=== PATIENT | female | born 1990 | race Caucasian/White ===

== ENCOUNTER 2022-10-27 16:00 | Inpatient (IN) | payer OTHER, SELFPAY ==
[2022-10-27] VITALS (107 sets, daily range): BP systolic 97–187; BP diastolic 56–110; PULSE 50–109; RESP 16–18; TEMP 36.9–37.1; O2SAT 91–100; BMI 39.9
--- NOTE | ~2022-10-27 | XR_ITS ---
XR abdomen/kub 1V DATE: 10/27/2022 20:02 INDICATION: Abnormal surgical count. Possible foreign body TECHNIQUE: Portable supine AP view of the lower abdomen and pelvis, from lower aspect of L3 through p roximal femoral shafts. COMPARISON: None FINDINGS: No radiopaque soft tissue foreign body is identified. There is a prominent amount fecal material in the right colon and moderately prominent amount of feca l material in the rectosigmoid area. IMPRESSION: No radiopaque foreign body Reviewed, dictated and finalized at [facility]. Reviewed, dictated and finalized at location A. RRER IMPRESSION: No radiopaque foreign body
[2022-10-27] MEDS: BETAMETHASONE SOD PHOS/ACETATE 30 MG/5 ML VIAL 12 MG IM (16:52)
[2022-10-27] MEDS: NIFEdipine 10 MG CAPSULE PO (17:26)
[2022-10-27] MEDS: LABETALOL HCL INJ 100 MG/20 ML VIAL 20 MG IV PUSH (17:35)
[2022-10-27 17:40] LABS: Basophils Absolute Auto 0.1 K/mm3 (0.0-0.1); Basophils Percent Auto 0.5 % (0.2-1.2); Eosinophils Absolute Auto 0.1 K/mm3 (0-0.3); Eosinophils Percent Auto 0.6 % (0-4.4); Hematocrit 42.1 % (37.0-47.0); Hemoglobin 14.4 g/dL (12.0-15.0); Immature Granulocyte Absolute 0.05 K/mm3 (0.00-0.031); Immature Granulocyte Percent A 0.3 % (0-0.5); Lymphocytes Absolute Auto 4.08 K/mm3 (0.9-3.2); Lymphocytes Percent Auto 28.1 % (18.3-44.2); Mean Corpuscular HGB Conc 34.2 g/dl (32-36); Mean Corpuscular Hemoglobin 30.8 pg (26-34); Mean Platelet Volume 11.4 fl (7.4-10.4); Monocytes Absolute Auto 1.2 K/mm3 (0.1-0.6); Monocytes Percent Auto 8.1 % (2.6-8.5); Neutrophils Percent Auto 62.4 % (45.5-73.1); Platelet Count Result 268 k/mm3 (150-375); Red Blood Count 4.68 M/mm3 (4.2-5.4); Red Cell Distribution Width 13.4 % (11.5-14.5); White Blood Count 14.5 K/mm3 (4.5-10.0)
[2022-10-27 17:47] LABS: Add Urine Microscopic? YES; Appearance Urine Clear (Clear); Bilirubin Urine Negative (Negative); Blood Urine Trace-Intact (Negative); Color Urine Light Yellow (Yellow); Creatinine Urine 100.6 mg/dL; Glucose Urine UA Negative (Negative); Ketones Urine Negative (Negative); Leukocyte Esterase Ur Trace LEU/UL (NEGATIVE); Nitrate Urine Negative (Negative); Protein Urine 3+ mg/dL (Negative); Specific Grav Ur 1.015 (1.001-1.035); Urobilinogen Urine 0.2 mg/dL (<2.0)
[2022-10-27] MEDS: LABETALOL HCL INJ 100 MG/20 ML VIAL 40 MG IV PUSH (17:47)
[2022-10-27 17:56] LABS: Bacteria Urine Trace /hpf; Mucus Urine Rare /lpf; Squamous Epithelial Cell Urine Few /hpf (Few); WBC Urine 0-3 /hpf (0-3)
[2022-10-27] MEDS: LABETALOL HCL INJ 100 MG/20 ML VIAL 80 MG IV PUSH (18:07)
--- NOTE | 2022-10-27 18:21 | PM.IMHP ---
H&P: HPI History of Present Illness Date/Time: 10/27/22 18:21 Chief Complaint: preeclampsia Narrative: Lauren is a 32yo at 25.1 who presented to the office with BPs 190s/120s. No VARGAS/BV. No history of HTN at all. Prior delivery term CS, had planned repeat CS with tubal. Sent to L [facility], received procardia 10mg oral while unable to get IV access, then IV labetalol 20/40/80mg. BP still 178/104, starting magnesium and hydralazine IV now. Normal plt, 3+ proteinuria, H/H , remainder of labs pending. Review of Systems Review of Systems: All systems reviewed & are unremarkable except as noted in HPI and below PMFSH Social History Social History (System 07/30/22 @ 11:52 by Blossom Bonds) Smoking status: Never smoker Alcohol intake: current Meds Home Medications and Allergies Allergies Allergy/AdvReac Type Severity Reaction Status Date / Time No Known Allergies Allergy Verified 10/27/22 16:32 Vital Signs Vital Signs - 24 hr 10/27/22 16:28 10/27/22 16:31 10/27/22 16:39 Pulse Rate 72 75 Blood Pressure 187/105 H 171/97 H Pulse Oximetry 99 10/27/22 16:44 10/27/22 16:46 10/27/22 16:49 Pulse Rate 79 Blood Pressure 170/106 H Pulse Oximetry 99 99 10/27/22 16:54 10/27/22 16:59 10/27/22 17:01 Pulse Rate 54 L Blood Pressure 175/91 H Pulse Oximetry 100 99 10/27/22 17:04 10/27/22 17:09 10/27/22 17:33 Pulse Rate Blood Pressure Pulse Oximetry 98 98 100 10/27/22 17:35 10/27/22 17:38 10/27/22 17:43 Pulse Rate 50 L Blood Pressure 172/90 H Pulse Oximetry 100 100 10/27/22 17:47 10/27/22 17:48 10/27/22 17:53 Pulse Rate 55 L Blood Pressure 171/87 H Pulse Oximetry 100 99 10/27/22 17:58 10/27/22 18:03 10/27/22 18:07 Pulse Rate 76 Blood Pressure 178/104 H Pulse Oximetry 99 100 10/27/22 18:08 10/27/22 18:13 10/27/22 18:18 Pulse Rate Blood Pressure Pulse Oximetry 100 99 100 10/27/22 18:21 10/27/22 17:35 10/27/22 17:47 Pulse Rate 62 63 Blood Pressure Pulse Oximetry 99 10/27/22 18:07 Pulse Rate 80 Blood Pressure Pulse Oximetry Exam Const: General: no acute distress Resp: Effort & Inspection: normal respiratory effort Auscultation: clear to auscultation bilaterally Cardio: Rate: regular rate Rhythm: regular rhythm GI: GI Palp: Yes Soft to palpation Extrem: General: normal to inspection H&P: Results Labs Labs: Short CBC 10/27/22 Range/Units 16:18 WBC 14.5 H (4.5-10.0) K/mm3 Hgb 14.4 (12.0-15.0) g/dL Hct 42.1 (37.0-47.0) % Plt Count 268 (150-375) k/mm3 Urine 10/27/22 Range/Units 16:18 Urine Color Light yellow (Yellow) Urine Appearance Clear (Clear) Urine pH 7.0 (5.0-9.0) Ur Specific [place] 1.015 (1.001-1.035) Urine Protein 3+ H (Negative) mg/dL Urine Glucose (UA) Negative (Negative) mg/dL Assessment and Plan Assessment and plan (1) Pre-eclampsia, severe, antepartum: Code(s): O14.10 - Severe pre-eclampsia, unspecified trimester Status: Acute Plan s/p PO nifedipine, IV labetalol x3, iv hydralazine magnesium for transfer s/p [place] #1 3+ proteinuria, normal plt and H/H, remainder of labs pending. FHT overall reassuring. did have one deceleration x 1.5 min. Discussed with pt diagnosis and prognosis of severe PreE and likely need for very delivery. Discussed magnesium therapy to prevent seizure. Questions answered. Will transfer to [place] per pt preference, works for [employer]. Transfer arranged, spent 40 minutes discussing POC with pt, RN, battery charger, and arranging transfer of this severely ill mother and her baby.
[2022-10-27] MEDS: hydrALAZINE HCL 20 MG/ML VIAL 5 MG IV PUSH (18:25)
[2022-10-27] MEDS: MAGNESIUM SULF 4 GM/WATER100ML 4 GM/100 ML BAG IVPB (18:26)
--- NOTE | 2022-10-27 18:38 | PM.TDS ---
Transfer Discharge Sum: Prov Provider Date of admission: 10/27/22 16:00 Primary care physician: UNKNOWN,DOCTOR Admitting clinician: Fabiola Cruz MD Attending physician on admission: Fabiola Cruz Attending physician on discharge: Fabiola Cruz Discharging clinician: Fabiola Cruz Anticipated date of transfer: 10/27/22 Receiving physician/facility: Dr. Corona at [facility] DS: Admitting Diagnosis Discharge Date 10/27/22 Admitting Diagnosis severe PreEclampsia DS: Discharge Diagnosis Discharge Diagnosis (1) Pre-eclampsia, severe, antepartum: Code(s): O14.10 - Severe pre-eclampsia, unspecified trimester Status: Acute Plan see H and P transfer to [facility] Transfer Discharge Sum: Med Medications Active and Home Medications: Active Medications Hydralazine HCl (Hydralazine Hcl 20 Mg/Ml Vial) 5 mg IV PUSH ONCE PRN PRN Reason: BP >160/110 Last Admin: 10/27/22 18:25 Dose: 5 mg Hydralazine HCl (Hydralazine Hcl 20 Mg/Ml Vial) 10 mg IV PUSH ONCE PRN PRN Reason: BP >160/110 Magnesium Sulfate (Magnesium Sulf 20gm/[id number]) 500 mls @ 50 mls/hr IV CONT .Q10H DOMINIQUE Labetalol HCl (Labetalol Hcl Inj 100 Mg/20 Ml Vial) 20 mg IV PUSH ONCE PRN PRN Reason: BP >160/110 Last Admin: 10/27/22 17:35 Dose: 20 mg Labetalol HCl (Labetalol Hcl Inj 100 Mg/20 Ml Vial) 40 mg IV PUSH ONCE PRN PRN Reason: BP >160/110 Last Admin: 10/27/22 17:47 Dose: 40 mg Labetalol HCl (Labetalol Hcl Inj 100 Mg/20 Ml Vial) 80 mg IV PUSH ONCE PRN PRN Reason: BP >160/110 Last Admin: 10/27/22 18:07 Dose: 80 mg Transfer Discharge Sum: Hosp Hospital Course Hospital course: Lauren Arriaza is a 32 year old female presented for severe BPs. 3+ proteinuria. Magnesium started, received steroids for lung maturity, and BPs treated with IV labetalol and hydralazine. FHT monitored. Transfer team from [facility] picked up via ambulance. Time Spent with Patient Time attestation: Total time spent providing and/or coordinating transfer services: Total time spent: Greater than 30 minutes Exam Narrative: abdomen gravid, nontender ext 2+ edema RRR CTA B FHT reassuring for GA with one 1.5min decel down 30bpm Const: General: cooperative and no acute distress DS: Data Data Completed and Pending Labs on day of discharge: Labs from last 24 hours 10/27/22 10/27/22 10/27/22 16:18 16:18 16:18 WBC 14.5 H RBC 4.68 Hgb 14.4 Hct 42.1 MCV 90.0 MCH 30.8 MCHC 34.2 RDW 13.4 Plt Count 268 MPV 11.4 H Immature Gran % (Auto) 0.3 Neut % (Auto) 62.4 Lymph % (Auto) 28.1 [place] % (Auto) 8.1 Eos % (Auto) 0.6 Baso % (Auto) 0.5 Lymph # (Auto) 4.08 H [place] # (Auto) 1.2 H Eos # (Auto) 0.1 Baso # (Auto) 0.1 Abs Immat Gran (auto) 0.05 H Absolute Neuts (auto) 9.0 H Absolute Nucleated RBC 0.0 Nucleated RBC % 0.0 Sodium Pending Potassium Pending Chloride Pending Carbon Dioxide Pending Anion Gap Pending BUN Pending Creatinine Pending Estim Creat Clear Calc Pending Estimated GFR Pending Glucose Pending Uric Acid Pending Calcium Pending Total Bilirubin Pending AST Pending ALT Pending Alkaline Phosphatase Pending Total Protein Pending Albumin Pending Urine Color Urine Appearance Urine pH Ur Specific [place] Urine Protein Urine Glucose (UA) Urine Ketones Ur Blood (Man) Urine Nitrate Urine Bilirubin Urine Urobilinogen Ur Leukocyte Esterase Urine RBC Urine WBC Ur Squamous Epith Cells Urine Bacteria Urine Mucus U Random Total Protein Pending Urine Creatinine 100.6 Protein/Creat Ratio 2 Pending 10/27/22 16:18 WBC RBC Hgb Hct MCV MCH MCHC RDW Plt Count MPV Immature Gran % (Auto) Neut % (Auto) Lymph % (Auto) [place] % (Auto) Eos % (Auto) Baso % (Auto) Lymph # (Auto) [place] # (Auto) Eos # (Auto) Baso # (
--- NOTE | 2022-10-27 18:50 | OBADM ---
This patient, Lauren Arriaza, admitted to the OB room OB Post 116 for observation. Patient/family oriented to hospital policies and general routines including ID bracelet, bed and alarms, visiting hours, pain management, procedures, bathroom and other care routines, personal items, smoking policy, room service/diet, and visiting hours. Patient/Family are encouraged to report perceived risks to care and to ask questions if they do not understand what they are told or what they should do.
[2022-10-27] MEDS: hydrALAZINE HCL 20 MG/ML VIAL 10 MG IV PUSH ×2 (18:52→19:00)
--- NOTE | 2022-10-27 18:52 | PC.NURSE ---
1714- Dr. Cruz notified of patient's vital signs and NST. Orders received. 1811- Dr. Cruz in patient's room, reviewed FHR, labs, and vital signs.
[2022-10-27 18:56] LABS: Alanine Aminotransferase 23 U/L (6-35); Albumin Level 3.5 g/dL (3.5-5.1); Alkaline Phosphatase 94 U/L (38-126); Anion Gap 6 mmol/L (8-16); Aspartate Amino Transferase 35 U/L (14-36); Bilirubin,Total 0.2 mg/dL (0.2-1.3); Blood Urea Nitrogen 11 mg/dL (7-17); Calcium 8.6 mg/dL (8.4-10.2); Carbon Dioxide 21 mmol/L (22-30); Chloride 106 mmol/L (98-107); Estimated CRCL calculation 98 ml/min; Estimated Glomerular Filt Rate > 60; Glucose 95 mg/dL (65-110); Potassium 3.9 mmol/L (3.4-5.0); Sodium 133 mmol/L (137-145); Uric Acid 8.2 mg/dL (2.5-7.5)
[2022-10-27] MEDS: MAGNESIUM SULF 20GM/WATER500ML 500 ML 50 MG IV CONT (19:02)
[2022-10-27 19:03] LABS: Total Protein Urine Random > 600 mg/dL
--- NOTE | 2022-10-27 19:44 | WPDANESEPPF ---
Anes - Initial Pre Proc Eval Date/Time: 10/27/22 19:44 Surgeon: Fabiola Cruz MD Pre Op Diagnosis: Elevated Blood Pressure Patient Data Age: 32 Gender: F Height: 1.65 m Weight: 109 kg Last Vital Signs Pulse 95 10/27/22 19:03 BP 138/88 10/27/22 19:03 Pulse Ox 99 10/27/22 19:01 Allergies Allergy/AdvReac Type Severity Reaction Status Date / Time No Known Allergies Allergy Verified 10/27/22 16:32 Laboratory Tests 10/27/22 10/27/22 10/27/22 16:18 16:18 16:18 WBC 14.5 K/mm3 H K/mm3 (4.5-10.0) RBC 4.68 M/mm3 M/mm3 (4.2-5.4) Hgb 14.4 g/dL g/dL (12.0-15.0) Hct 42.1 % % (37.0-47.0) MCV 90.0 fl fl (80-100) MCH 30.8 pg pg (26-34) MCHC 34.2 g/dl g/dl (32-36) RDW 13.4 % % (11.5-14.5) Plt Count 268 k/mm3 k/mm3 (150-375) MPV 11.4 fl H fl (7.4-10.4) Immature Gran % (Auto) 0.3 % % (0-0.5) Neut % (Auto) 62.4 % % (45.5-73.1) Lymph % (Auto) 28.1 % % (18.3-44.2) [place] % (Auto) 8.1 % % (2.6-8.5) Eos % (Auto) 0.6 % % (0-4.4) Baso % (Auto) 0.5 % % (0.2-1.2) Lymph # (Auto) 4.08 K/mm3 H K/mm3 (0.9-3.2) [place] # (Auto) 1.2 K/mm3 H K/mm3 (0.1-0.6) Eos # (Auto) 0.1 K/mm3 K/mm3 (0-0.3) Baso # (Auto) 0.1 K/mm3 K/mm3 (0.0-0.1) Abs Immat Gran (auto) 0.05 K/mm3 H K/mm3 (0.00-0.031) Absolute Neuts (auto) 9.0 K/mm3 H K/mm3 (1.3-6.7) Absolute Nucleated RBC 0.0 K/mm3 K/mm3 (0.0-0.012) Nucleated RBC % 0.0 % % (0.0-0.2) Sodium Potassium Chloride Carbon Dioxide Anion Gap BUN Creatinine Estim Creat Clear Calc Estimated GFR Glucose Uric Acid Calcium Total Bilirubin AST ALT Alkaline Phosphatase Total Protein Albumin Urine Color Light yellow (Yellow) Urine Appearance Clear (Clear) Urine pH 7.0 (5.0-9.0) Ur Specific [place] 1.015 (1.001-1.035) Urine Protein 3+ mg/dL H mg/dL (Negative) Urine Glucose (UA) Negative mg/dL mg/dL (Negative) Urine Ketones Negative mg/dL mg/dL (Negative) Ur Blood (Man) Trace-intact (Negative) Urine Nitrate Negative (Negative) Urine Bilirubin Negative (Negative) Urine Urobilinogen 0.2 mg/dL mg/dL (<2.0) Ur Leukocyte Esterase Trace KRISTIAN/UL H KRISTIAN/UL (NEGATIVE) Urine RBC 3-5 /hpf H /hpf (0-2) Urine WBC 0-3 /hpf /hpf (0-3) Ur Squamous Epith Cells Few /hpf /hpf (Few) Urine Bacteria Trace /hpf /hpf Urine Mucus Rare /lpf /lpf U Random Total Protein > 600 mg/dL mg/dL Urine Creatinine 100.6 mg/dL mg/dL Protein/Creat Ratio 2 > 5.96 mg/mg H mg/mg (0-0.20) 10/27/22 17:58 WBC RBC Hgb Hct MCV MCH MCHC RDW Plt Count MPV Immature Gran % (Auto) Neut % (Auto) Lymph % (Auto) [place] % (Auto) Eos % (Auto) Baso % (Auto) Lymph # (Auto) [place] # (Auto) Eos # (Auto) Baso # (Auto) Abs Immat Gran (auto) Absolute Neuts (auto) Absolute Nucleated RBC Nucleated RBC % Sodium 133 mmol/L L mmol/L (137-145) Potassium 3.9 mmol/L mmol/L (3.4-5.0) Chloride 106 mmol/L mmol/L (98-107) Carbon Dioxide 21 mmol/L L mmol/L (22-30) Anion Gap 6 mmol/L L mmol/L (8-16) BUN 11 mg/dL mg/dL (7-17) Creatinine 0.90 mg/dL mg/dL (0.7-1.0) Estim Creat Clear Calc 98 ml/min ml/min Estimated GFR > 60 (59 - ) Glucose 95 mg/dL mg/
--- NOTE | 2022-10-27 20:35 | PM.OBPRVD ---
OB - Delivery Note Procedure Delivery date: 10/27/22 Procedure: emergent classical section Events: Preeclampsia w severe features and Previous Delivery Intrapartal Events: Non-Reassuring Status Route of delivery: Specimen: Yes (placenta) Quantitative Blood Loss (ml): 620 Anesthesia type: Spinal Disposition: Floor Complications: none Narrative: See H and P update. The patient received general anesthesia due to emergent nature of CS. [place] was placed, betadine was poured for a rapid prep. As soon as anesthesia was induced, a Pfannensteil skin incision was made and carried through to the underlying layer of fascia. The fascia was incised in the midline and then extended laterally bluntly. The muscles were in the midline and the peritoneum was entered bluntly. The peritoneal incision was extended inferiorly and superiorly.. The bladder blade was then inserted. A classical uterine incision was made with a scalpel and extended bluntly. AROM was performed and fluid was noted to be clear. The head was delivered, followed by the remainder of the baby, very atraumatically. Nuchal cord x3 was noted. The cord was clamped and cut and the infant was handed off. Cord blood was obtained and the placenta was then removed manually. The uterus was exteriorized. A moist lap sponge was used to curette the endometrium. The uterine incision was then closed with two layers of 0-Vicryl in a running, locking fashion and a baseball stitch on the serosa. Good hemostasis was noted. The posterior cul de sac was irrigated with normal saline and cleared of all clot and debris. The uterus was returned to the abdomen. Both lateral gutters were then irrigated. The rectus muscles were inspected and found to be hemostatic. The fascia was reapproximated using 0-Vicryl in running fashion. The subcutaneous tissue was irrigated with normal saline and made hemostatic with Bovie electrocautery. The subcutaneous tissue was reapproximated with a layer of running 2-0 plain gut. The skin was then closed with absorbable lynn. Steri strips and a bandage were applied. The uterus was evacuated. The patient tolerated the procedure very well. All counts were correct. She was taken to the recovery room in good condition. Baby Date of : 10/27/22 Time of : 19:15 Weeks of gestation at delivery: 25 Infant gender: Female Weight (pounds): 1 Weight (ounces): 4 presentation: vertex Placenta delivery description: Manual Removal Cord Vessel Description: 3 Vessels, Nuchal Cord (x3) and Clamped/Cut
[2022-10-27] MEDS: MORPHINE SULFATE INJ (*CRX) 10 MG/ML AMP 2 MG IV PUSH ×4 (20:55→22:01)
--- NOTE | 2022-10-27 21:04 | PM.OBPNLAB ---
Pain Control Date/time seen: 10/27/22 21:04 Assessment and Plan Comments: Late entry: Shortly before 1900, as transfer was pending, FHT were difficult for RN to find. Second RN was helping. Before I attended to other duties, I went to room to verify status. With US I found FHT in the 60s. Pt moved to both sides, FHT stayed in 50s-60s for 2-3 minutes so I called a crash CS at 190. In OR at 190, general anesthesia administered, incision 1912, baby 1914. After CS discussed with Lauren's events leading up to delivery. Questions answered. Support given.
--- NOTE | 2022-10-27 22:20 | PC.NURSE ---
Dr Cruz calls for update on BP. Vitals given to MD and orders received to keep patient on unit for 2 more hours before transferring to post . Orders that if patient has severe range pressures to repeat in 20 minutes and if still severe to call Dr. Cruz for orders.
[2022-10-27] MEDS: ONDANSETRON INJ 4 MG/2 ML VIAL IV PUSH (22:31)
--- NOTE | 2022-10-27 23:18 | PC.NURSE ---
1805 This nurse is asked to come to room 116 to attempt a lab draw due to multiple attempt failures. Two attempts by this nurse unsuccessful in the right AC and right hand. 1812 Report received on patient from Anahi GOLD. 1815 FHTs 115 with movement audible through monitors and pt states she feels movement. 1820 Shannon RN at bedside with successful lab draw from right hand. [id number] This RN attempts to obtain FHTs and continues to adjust monitors. Pt states she feels movement 185 Jose RN at bedside with Dr. Cruz to attempt and find FHTs 190 Dr. Cruz requests US due to inability to obtain FHTs with monitors. FHTs via US in the 60s. Position change attempted. 190 Dr. Cruz calls for emergent RCS due to nonreassuring FHTs 190 MgSO4 turned off and patient is transferred out of room 116 via labor bed to OB OR1
--- NOTE | 2022-10-27 23:29 | PC.NURSE ---
2013 Patient arrives in room 120 for recover via stretcher. 2020 MgSO4 restarted at this time. 2099 Dr Mclain at bedside to talk with patient and SO 2109 Dr Cruz at bedside to talk with patient
[2022-10-28] VITALS (15 sets, daily range): BP systolic 136–154; BP diastolic 83–93; PULSE 71–102; RESP 16–20; TEMP 36.6–37.5; O2SAT 95–99
--- NOTE | 2022-10-28 00:57 | PC.NURSE ---
Addendum entered by Tanja Borrego RN 10/28/22 01:12: Room 279 not 287 Original Note: 0020 Report given to Jeanette GOLD on post unit. 0035 Patient transferred to room 287 via stretcher at this time without complication. Pericare and linen change at this time. Jeanette GOLD continuing care of patient
[2022-10-28] MEDS: ceFAZolin 2 GM/D5W 50 ML 2 GM/50 ML BAG IVPB ×3 (03:57→20:22)
[2022-10-28] MEDS: MAGNESIUM SULF 20GM/WATER500ML 500 ML 50 MG IV CONT ×2 (06:14→16:30)
[2022-10-28 08:13] LABS: Basophils Absolute Auto 0.1 K/mm3 (0.0-0.1); Basophils Percent Auto 0.2 % (0.2-1.2); Hematocrit 40.5 % (37.0-47.0); Hemoglobin 13.4 g/dL (12.0-15.0); Immature Granulocyte Absolute 0.17 K/mm3 (0.00-0.031); Immature Granulocyte Percent A 0.6 % (0-0.5); Lymphocytes Absolute Auto 2.06 K/mm3 (0.9-3.2); Lymphocytes Percent Auto 7.3 % (18.3-44.2); Mean Corpuscular HGB Conc 33.1 g/dl (32-36); Mean Corpuscular Hemoglobin 30.3 pg (26-34); Mean Corpuscular Volume 91.6 fl (80-100); Monocytes Absolute Auto 0.6 K/mm3 (0.1-0.6); Neutrophils Absolute Auto 25.5 K/mm3 (1.3-6.7); Neutrophils Percent Auto 89.9 % (45.5-73.1); Platelet Count Result 309 k/mm3 (150-375); Red Blood Count 4.42 M/mm3 (4.2-5.4); Red Cell Distribution Width 13.4 % (11.5-14.5); White Blood Count 28.3 K/mm3 (4.5-10.0)
[2022-10-28] MEDS: DOCUSATE SODIUM 100 MG CAPSULE PO ×2 (08:30→16:30)
[2022-10-28] MEDS: MULTIVIT/MIN/PREN/FOL AC/IRON TABLET 1 TAB PO (08:30)
[2022-10-28] MEDS: KETOROLAC 30 MG/ML VIAL (*BKC) IV PUSH (08:30)
--- NOTE | 2022-10-28 08:32 | PM.OBPNVD ---
OB - PN: Subj Subjective Date/time seen: 10/28/22 08:32 Patient comments: no complaints baby status: NICU [place] feeding status: pumping and storing Narrative: POD 1 from primary CS. Doing well. Normal lochia. Baby doing well at [facility]. BPs 140s-150s/90s. Mag on. OB - PN: Obj Data Labs 10/27/22 16:18 10/27/22 17:58 Labs: Laboratory Results - last 24 hr 10/27/22 10/27/22 10/27/22 16:18 16:18 16:18 WBC 14.5 H RBC 4.68 Hgb 14.4 Hct 42.1 MCV 90.0 MCH 30.8 MCHC 34.2 RDW 13.4 Plt Count 268 MPV 11.4 H Immature Gran % (Auto) 0.3 Neut % (Auto) 62.4 Lymph % (Auto) 28.1 [place] % (Auto) 8.1 Eos % (Auto) 0.6 Baso % (Auto) 0.5 Lymph # (Auto) 4.08 H [place] # (Auto) 1.2 H Eos # (Auto) 0.1 Baso # (Auto) 0.1 Abs Immat Gran (auto) 0.05 H Absolute Neuts (auto) 9.0 H Absolute Nucleated RBC 0.0 Nucleated RBC % 0.0 Sodium Potassium Chloride Carbon Dioxide Anion Gap BUN Creatinine Estim Creat Clear Calc Estimated GFR Glucose Uric Acid Calcium Total Bilirubin AST ALT Alkaline Phosphatase Total Protein Albumin Urine Color Light yellow Urine Appearance Clear Urine pH 7.0 Ur Specific [place] 1.015 Urine Protein 3+ H Urine Glucose (UA) Negative Urine Ketones Negative Ur Blood (Man) Trace-intact Urine Nitrate Negative Urine Bilirubin Negative Urine Urobilinogen 0.2 Ur Leukocyte Esterase Trace H Urine RBC 3-5 H Urine WBC 0-3 Ur Squamous Epith Cells Few Urine Bacteria Trace Urine Mucus Rare U Random Total Protein > 600 Urine Creatinine 100.6 Protein/Creat Ratio 2 > 5.96 H 10/27/22 17:58 WBC RBC Hgb Hct MCV MCH MCHC RDW Plt Count MPV Immature Gran % (Auto) Neut % (Auto) Lymph % (Auto) [place] % (Auto) Eos % (Auto) Baso % (Auto) Lymph # (Auto) [place] # (Auto) Eos # (Auto) Baso # (Auto) Abs Immat Gran (auto) Absolute Neuts (auto) Absolute Nucleated RBC Nucleated RBC % Sodium 133 L Potassium 3.9 Chloride 106 Carbon Dioxide 21 L Anion Gap 6 L BUN 11 Creatinine 0.90 Estim Creat Clear Calc 98 Estimated GFR > 60 Glucose 95 Uric Acid 8.2 H Calcium 8.6 Total Bilirubin 0.2 AST 35 ALT 23 Alkaline Phosphatase 94 Total Protein 6.0 L Albumin 3.5 Urine Color Urine Appearance Urine pH Ur Specific [place] Urine Protein Urine Glucose (UA) Urine Ketones Ur Blood (Man) Urine Nitrate Urine Bilirubin Urine Urobilinogen Ur Leukocyte Esterase Urine RBC Urine WBC Ur Squamous Epith Cells Urine Bacteria Urine Mucus U Random Total Protein Urine Creatinine Protein/Creat Ratio 2 Imaging Radiologist's impression: Impressions Abdomen X-Ray 10/27/22 20:12 IMPRESSION: No radiopaque foreign body OB - PN A/P Plan day: 1 Plan: routine care Comments: BPs creeping back towards severe, will start oral procardia. mag for 24 hours. Time Spent With Patient Time: Total time spent is greater than 50% in coordination of care (as documented) at patient's floor/unit and/or counseling patient: Exam Narrative: NAD abdomen soft, appropriately tender, incision bandaged Extremities nontender with 1+ edema
[2022-10-28] MEDS: NIFEdipine 30 MG TAB.ER.24 PO (09:00)
--- NOTE | 2022-10-28 10:20 | WPDANESPN ---
Anes - Prog Note Post-Op Date/Time: 10/28/22 10:20 Cardiovascular status: normal Respiratory status: normal Airway patency: baseline Mental status: baseline Post-Op hydration status: normal Vital Signs: Last Vital Signs Temp 98.2 F 10/28/22 08:10 Pulse 90 10/28/22 08:10 Resp 16 10/28/22 08:10 BP 136/90 10/28/22 08:10 Pulse Ox 95 10/28/22 08:10 O2 Del Method Non-Rebreather Mask 10/27/22 20:15 O2 Flow Rate 6 10/27/22 20:15 Pain Score (VAS): 0/10 I/O: Intake & Output 10/27/22 10/28/22 10/28/22 23:59 07:59 15:59 Intake Total 950 600 Output Total 620 300 Balance -620 650 600 Laboratory Tests 10/28/22 08:04 10/27/22 17:58 10/27/22 10/27/22 10/27/22 16:18 16:18 16:18 WBC 14.5 H RBC 4.68 Hgb 14.4 Hct 42.1 MCV 90.0 MCH 30.8 MCHC 34.2 RDW 13.4 Plt Count 268 MPV 11.4 H Immature Gran % (Auto) 0.3 Neut % (Auto) 62.4 Lymph % (Auto) 28.1 [place] % (Auto) 8.1 Eos % (Auto) 0.6 Baso % (Auto) 0.5 Lymph # (Auto) 4.08 H [place] # (Auto) 1.2 H Eos # (Auto) 0.1 Baso # (Auto) 0.1 Abs Immat Gran (auto) 0.05 H Absolute Neuts (auto) 9.0 H Absolute Nucleated RBC 0.0 Nucleated RBC % 0.0 Sodium Potassium Chloride Carbon Dioxide Anion Gap BUN Creatinine Estim Creat Clear Calc Estimated GFR Glucose Uric Acid Calcium Total Bilirubin AST ALT Alkaline Phosphatase Total Protein Albumin Urine Color Light yellow Urine Appearance Clear Urine pH 7.0 Ur Specific [place] 1.015 Urine Protein 3+ H Urine Glucose (UA) Negative Urine Ketones Negative Ur Blood (Man) Trace-intact Urine Nitrate Negative Urine Bilirubin Negative Urine Urobilinogen 0.2 Ur Leukocyte Esterase Trace H Urine RBC 3-5 H Urine WBC 0-3 Ur Squamous Epith Cells Few Urine Bacteria Trace Urine Mucus Rare U Random Total Protein > 600 Urine Creatinine 100.6 Protein/Creat Ratio 2 > 5.96 H 10/27/22 10/28/22 17:58 08:04 WBC 28.3 H RBC 4.42 Hgb 13.4 Hct 40.5 MCV 91.6 MCH 30.3 MCHC 33.1 RDW 13.4 Plt Count 309 MPV 11.0 H Immature Gran % (Auto) 0.6 H Neut % (Auto) 89.9 H Lymph % (Auto) 7.3 L [place] % (Auto) 2.0 L Eos % (Auto) 0.0 Baso % (Auto) 0.2 Lymph # (Auto) 2.06 [place] # (Auto) 0.6 Eos # (Auto) 0.0 Baso # (Auto) 0.1 Abs Immat Gran (auto) 0.17 H Absolute Neuts (auto) 25.5 H Absolute Nucleated RBC 0.0 Nucleated RBC % 0.0 Sodium 133 L Potassium 3.9 Chloride 106 Carbon Dioxide 21 L Anion Gap 6 L BUN 11 Creatinine 0.90 Estim Creat Clear Calc 98 Estimated GFR > 60 Glucose 95 Uric Acid 8.2 H Calcium 8.6 Total Bilirubin 0.2 AST 35 ALT 23 Alkaline Phosphatase 94 Total Protein 6.0 L Albumin 3.5 Urine Color Urine Appearance Urine pH Ur Specific [place] Urine Protein Urine Glucose (UA) Urine Ketones Ur Blood (Man) Urine Nitrate Urine Bilirubin Urine Urobilinogen Ur Leukocyte Esterase Urine RBC Urine WBC Ur Squamous Epith Cells Urine Bacteria Urine Mucus U Random Total Protein Urine Creatinine Protein/Creat Ratio 2 Post-procedural complaints: none Patient Feedback: Patient satisfied with anesthetic care.
[2022-10-28] MEDS: LACTATED RINGERS 1,000 ML 75 ML IV CONT (11:53)
[2022-10-28] MEDS: HYDROcodone/acetaminophen (*CRX) 5-325 MG TABLET 1 TAB PO (16:30)
[2022-10-29 03:00] VITALS: BP 145/96; PULSE 102; RESP 20; TEMP 37.3
[2022-10-29] MEDS: IBUPROFEN 600 MG TABLET PO ×3 (03:05→17:05)
[2022-10-29] MEDS: HYDROcodone/acetaminophen (*CRX) 5-325 MG TABLET 1 TAB PO ×4 (03:05→17:05)
--- NOTE | 2022-10-29 07:14 | PM.OBPNVD ---
OB - PN: Subj Subjective Date/time seen: 10/29/22 07:14 Patient comments: no complaints and incisional pain [place] baby status: adopting out Narrative: Diuresing well, BPs 130s-140s/90s off mag and on procardia 30xl. OB - PN: Obj Data Labs 10/28/22 08:04 10/27/22 17:58 Labs: Laboratory Results - last 24 hr 10/28/22 08:04 WBC 28.3 H RBC 4.42 Hgb 13.4 Hct 40.5 MCV 91.6 MCH 30.3 MCHC 33.1 RDW 13.4 Plt Count 309 MPV 11.0 H Immature Gran % (Auto) 0.6 H Neut % (Auto) 89.9 H Lymph % (Auto) 7.3 L [place] % (Auto) 2.0 L Eos % (Auto) 0.0 Baso % (Auto) 0.2 Lymph # (Auto) 2.06 [place] # (Auto) 0.6 Eos # (Auto) 0.0 Baso # (Auto) 0.1 Abs Immat Gran (auto) 0.17 H Absolute Neuts (auto) 25.5 H Absolute Nucleated RBC 0.0 Nucleated RBC % 0.0 OB - PN A/P Plan day: 2 Comments: Home tomorrow if BPs stay stable given severe PreE. Given info for follow up. Time Spent With Patient Time: Total time spent is greater than 50% in coordination of care (as documented) at patient's floor/unit and/or counseling patient: Exam Narrative: NAD abdomen soft, appropriately tender, incision CDI Extremities nontender with 1+ edema
[2022-10-29 08:50] VITALS: BP 131/88; PULSE 94; RESP 18; TEMP 36.8; O2SAT 100
[2022-10-29] MEDS: NIFEdipine 30 MG TAB.ER.24 PO (08:56)
[2022-10-29] MEDS: MULTIVIT/MIN/PREN/FOL AC/IRON TABLET 1 TAB PO (08:56)
[2022-10-29] MEDS: DOCUSATE SODIUM 100 MG CAPSULE PO ×2 (08:56→17:05)
[2022-10-29 09:00] VITALS: PULSE 102; RESP 20; O2SAT 96
[2022-10-29 11:55] VITALS: BP 136/87; PULSE 101; RESP 16; TEMP 37.2; O2SAT 97
[2022-10-29] MEDS: SIMETHICONE 80 MG TAB.CHEW PO (12:14)
[2022-10-29 17:15] VITALS: BP 147/92; PULSE 101; PULSE 87; RESP 16; RESP 20; TEMP 36.7; O2SAT 100; O2SAT 97
[2022-10-29 19:40] VITALS: BP 147/90; PULSE 101; RESP 16; TEMP 37
[2022-10-30] MEDS: IBUPROFEN 600 MG TABLET PO ×2 (02:46→08:11)
[2022-10-30] MEDS: HYDROcodone/acetaminophen (*CRX) 5-325 MG TABLET 1 TAB PO ×2 (02:46→08:11)
[2022-10-30 02:50] VITALS: BP 149/86; PULSE 86; RESP 16; TEMP 36.9
[2022-10-30 07:55] VITALS: BP 147/91; PULSE 88; RESP 18; TEMP 37.5; O2SAT 97
--- NOTE | 2022-10-30 08:00 | PM.OBPNVD ---
OB - PN: Subj Subjective Date/time seen: 10/30/22 08:00 Patient comments: no complaints, pain well controlled, incisional pain, tolerating diet and flatus present OB - PN: Obj Data Labs 10/28/22 08:04 10/27/22 17:58 OB - PN A/P Plan day: 3 Plan: routine care, discharge home and other Comments: Incision check in one week. Given precautions. Preeclampsia - resolving. Time Spent With Patient Time: Total time spent is greater than 50% in coordination of care (as documented) at patient's floor/unit and/or counseling patient: Exam Const: General: comfortable, no acute distress and alert Resp: Effort & Inspection: normal respiratory effort Auscultation: no crackles, no rales and no rhonchi Cardio: Rate: regular rate Heart sounds: no click, no murmurs and no rubs GI: Inspection: non-distended GI Palp: No Tenderness to palpation present (GI) Auscultation: normal bowel sounds Other: Incision - CDI Extrem: General: normal to inspection, no pedal edema and no calf tenderness
--- NOTE | 2022-10-30 08:02 | PM.OBDSVD ---
DS: Admitting Diagnosis Discharge Date 10/30/22 Admitting Diagnosis preeclampsia at 25 weeks DS: Discharge Diagnosis Discharge Diagnosis (1) Pre-eclampsia, severe, antepartum: Code(s): O14.10 - Severe pre-eclampsia, unspecified trimester Status: Acute OB - DS: Summary Hospital Course Hospital Course: 32-year-old multipara at 25 weeks was admitted for severe preeclampsia and delivered by /classical immediately. Resolution of preeclampsia followed. She was treated with oral antihypertensives. OB Procedures : PIH Mgmt OB Procedures Intrapartum: OB Procedures: : None Peripartum Data Procedures: Procedures Operation Date: 10/27/22 19:00 Actual Procedure Side Surgeon p Section Not Applicable Fabiola Cruz MD Time Spent with Patient Time attestation: Total time spent providing and/or coordinating discharge services: Discharge Plan Discharge Discharging Clinician: Kami Aguilar Patient Disposition: Home, Self-Care Activity: pelvic rest Diet: regular Patient Instructions: Antibiotic Form Stand Alone Forms: General Discharge Information Follow-up/Referrals: Kami Aguilar MD [Physician] - Discharge Medications: New hydrocodone-acetaminophen 5-325 mg tablet 1 tablet PO Q4H PRN (Reason: pain) Qty: 25 0RF oxycodone-acetaminophen 5-325 mg tablet 1 tablet PO Q4H PRN (Reason: pain) Qty: 25 0RF nifedipine [Procardia XL] 30 mg tablet extended release 24 hr 30 mg PO DAILY Qty: 30 2RF nitrofurantoin monohyd/m-cryst [Macrobid] 100 mg capsule 100 mg PO Q12H 7 Days Qty: 14 0RF Rx Instructions: must administer with a meal/food nifedipine [Procardia XL] 30 mg Tablet Extended Release 24hr 30 mg PO QAM Qty: 30 0RF Date of admission: 10/27/22 16:00 Primary Care Provider: UNKNOWN,DOCTOR Admitting Provider: Fabiola Cruz Attending physician on admission: Fabiola Cruz Condition: Stable
[2022-10-30] MEDS: MULTIVIT/MIN/PREN/FOL AC/IRON TABLET 1 TAB PO (08:11)
[2022-10-30] MEDS: DOCUSATE SODIUM 100 MG CAPSULE PO (08:11)
[2022-10-30] MEDS: NIFEdipine 30 MG TAB.ER.24 PO (08:12)
== END 2022-10-30 10:05 | disposition home or self-care (01) | DRG 788 ==
LOC: ANHOB2 10-28 09:42 → ANHOBPP 10-28 09:42
PROVIDERS: Admitting Provider Obstetrics & Gynecology; Visit Provider Obstetrics & Gynecology
PROC: 10D00Z0 Extraction of Products of Conception, High, Open Approach (ICD-10-PCS; CPT 59514; principal; 2022-10-27 19:00)
DX: O14.14 Severe pre-eclampsia complicating childbirth (principal); O34.219 Maternal care for unspecified type scar from previous cesarean delivery; O69.81X0 Labor and delivery complicated by cord around neck, without compression, not applicable or unspecified; O76 Abnormality in fetal heart rate and rhythm complicating labor and delivery; O99.214 Obesity complicating childbirth; E66.01 Morbid (severe) obesity due to excess calories; Z3A.25 25 weeks gestation of pregnancy; Z37.0 Single live birth
CPT/HCPCS: 36415; 59025; 74018; 80053; 81001; 82570; 84156; 84550; 85025; 87086; 87088; A9270; J0360; J0690; J0702; J1885; J2250; J2270; J2274; J2405; J3475; J7120